=== PATIENT | female | born 2000 | race Caucasian/White ===

== ENCOUNTER 2018-06-11 11:21 | Emergency (ER) | payer OTHER ==
[~2018-06-11] VITALS: Ht 162.6 cm; Wt 82.6 kg
[~2018-06-11 11:21] MED LIST: DICY10CA40 PO; IBUP-1542 PO; ONDA4TAB8 PO
[2018-06-11 11:30] VITALS: Ht 162.6 cm; Wt 82.6 kg
[2018-06-11] MEDS ORDERED: KETOROLAC 30 MG INJ IM STA (12:07)
[2018-06-11] MEDS ORDERED: IBUP-1542 PO (13:01)
[2018-06-11] MEDS ORDERED: BUTA1CAP38 PO (13:01)
--- NOTE | 2018-06-11 13:04 | ERD ---
ER Documentation Chief Complaint Chief Complaint headache /dizizness since yesterday HPI 18-year-old female presents with a headache since yesterday. She has a history of frequent headaches. They usually frontal and bitemporal. She denies any history of trauma. Denies any fevers, visual changes, nausea vomiting, deficits. She denies urinary complaints. She denies chest pain, shortness of breath. Patient is currently on her menses. Patient admits to history of anxiety. Patient takes ibuprofen for headaches but has not taken any today. ROS All systems reviewed and are negative except as per history of present illness. Medications Home Meds Active Scripts Ibuprofen* (Motrin*) 600 Mg Tab, 600 MG PO Q6, #20 TAB Prov:KIARA KWOK MD 06/11/18 Iofmfyjiha-Psdcwkjaybqyu-Ywvcglpq* (Fioricet*) 50-300-40 Mg Capsule, 1 CAP PO Q4H PRN for HEADACHE, #15 CAP Prov:KIARA KWOK MD 06/11/18 Dicyclomine HCl (Dicyclomine HCl) 10 Mg Capsule, 10 MG PO QID for 3 Days, CAP Prov:SEBAS MUNIZ 09/18/15 Ondansetron Hcl* (Zofran*) 4 Mg Tablet, 4 MG PO Q6H for NAUSEA AND/OR VOMITING, #30 TAB Prov:SEBAS MUNIZ 09/18/15 Ibuprofen* (Motrin*) 600 Mg Tab, 600 MG PO Q6, #14 TAB Prov:KIARA KWOK MD 03/30/15 Allergies Allergies: Coded Allergies: No Known Allergy (Unverified , 06/11/18) PMhx/Soc Medical and Surgical Hx: pt denies Medical Hx, pt denies Surgical Hx History of Surgery: No Anesthesia Reaction: No Hx Neurological Disorder: No Hx Respiratory Disorders: No Hx Cardiac Disorders: No Hx Psychiatric Problems: No Hx Miscellaneous Medical Probl: No Hx Alcohol Use: No Hx Substance Use: No Hx Tobacco Use: No Smoking Status: Never smoker FmHx Family History: No diabetes, No coronary disease, No other Physical Exam Vitals Vital Signs Date Temp Pulse Resp B/P (MAP) Pulse Ox O2 O2 Flow FiO2 Time Delivery Rate 06/11/18 97.8 74 19 125/72 100 11:30 (89) Physical Exam Const: No acute distress Head: Atraumatic. Patient has reproducible headache with bitemporal palpation without pulsatile masses. Eyes: Normal Conjunctiva and eyes Debbie and extraocular movements intact. ENT: Normal External Ears, Nose and Mouth. TMs normal. Oropharynx normal. Neck: Full range of motion. No meningismus. Resp: Clear to auscultation bilaterally Cardio: Regular rate and rhythm, no murmurs Abd: Soft, non tender, non distended. Normal bowel sounds Skin: No petechiae or rashes Back: No midline or flank tenderness Ext: No cyanosis, or edema Neur: Awake and alert. Cranial nerves II through XII grossly intact. Normal gait. No cerebellar signs. Negative Romberg and no pronator drift. Psych: Normal Mood and Affect Results 24 hrs Laboratory Tests Test 06/11/18 12:25 Urine Color DILCIA Urine Clarity CLOUDY Urine pH 6.0 Urine Specific [place] 1.028 Urine Ketones TRACE mg/dL Urine Nitrite NEGATIVE mg/dL Urine Bilirubin NEGATIVE mg/dL Urine Urobilinogen NEGATIVE mg/dL Urine Leukocyte Esterase TRACE [place]/ul Urine Microscopic RBC > 182 /HPF Urine Microscopic WBC 21 /HPF Urine Mucus MODERATE /HPF Urine Hemoglobin 3+ mg/dL Urine Glucose NEGATIVE mg/dL Urine Total Protein 2+ mg/dl Urine Test NEGATIVE Current Medications Medications Dose Sig/Sandeep Start Time Status Last (Trade) Ordered Route PRN Stop Time Admin Dose Reason Admin Ketorolac 30 mg ONCE STAT 06/11/18 DC 06/11/18 Tromethamine IM 12:07 12:43 (Toradol) 06/11/18 12:08 Procedures/MDM HCG is negative. Urine shows hemoglobin and trace leukocytes although patient is on menses. Patient presents with signs and symptoms of likely tension headache. No signs of neurologic deficit, signs of meningitis, history of trauma, additional concerning signs or symptoms. No signs of central nervous lesion and doubt subarachnoid or additional emergent causes of headache. Will treat with Fioricet, continuation of ibuprofen, primary care follow-up and return precautions. She was administered Toradol 30 mg IM here in the ED. The patient was stable with no new complaints during the ER course. Clinically, there is no current evidence to suggest meningitis, sepsis, acute abdomen, pneumonia, stroke, acute coronary syndrome, pulmonary embolism, aortic dissection or any other emergent condition appearing to require further evaluation or hospitalization. Patient counseled regarding my diagnostic impression and care plan. Prior to discharge all questions answered. Pt agrees with treatment plan and understands strict return precautions. Pt is instructed to follow up with primary care provider within 24-48 hours. Precautionary instructions provided including instructions to return to the ER if not improving or for any worsening or changing symptoms or concerns. Departure Diagnosis: Primary Impression: Headache Headache type: unspecified Headache chronicity pattern: unspecified pattern Intractability: not intractable Qualified Codes: R51 - Headache Condition: Stable Patient Instructions: Self-Care for Headaches, Headache, Unspecified Referrals: NO PRIMARY,CARE PHYSICIAN (PCP) Additional Instructions: Suspect tension headache. Recheck for deficits, fevers, vomiting, visual changes, new worsening symptoms with primary care doctor. KIARA KWOK MD Jun 11, 2018 13:04
[2018-06-11 13:27] VITALS: BP 119/76; PULSE 71; RESP 16
== END 2018-06-11 13:10 | disposition home or self-care (01) ==
LOC: FTE 11:21
DX: R51 Headache (principal)
CPT/HCPCS: 81001; 84703; 96372; J1885; Z7502

== ENCOUNTER 2018-08-20 21:36 | Emergency (ER) | payer OTHER ==
[~2018-08-20] VITALS: Ht 165.1 cm; Wt 83.4 kg
[~2018-08-20 21:36] MED LIST changes: +BUTA1CAP38 PO
[2018-08-20 22:04] VITALS: Ht 165.1 cm; Wt 83.4 kg
[2018-08-21] MEDS ORDERED: LORAZEPAM 0.5 MG TAB PO ONE (00:30)
[2018-08-21] MEDS ORDERED: LORA-441 PO (00:55)
--- NOTE | 2018-08-21 01:20 | ERD ---
ER Documentation Chief Complaint Chief Complaint PT REPORTS SOB WHILE DRIVING HPI 18-year-old female with no reported past medical or surgical history, questionable history of anxiety presents with complaint of anxiety associated with shortness of breath and chest pressure. States symptoms began abruptly while she was driving. Reports increased stressors at home school and work. She otherwise denies recent illness, fevers, chills, chest pain, headache, numbness, dyspnea on exertion, nausea, vomiting, diarrhea, abdominal pain, urinary symptoms. Denies any history of depression, denies suicidal homicidal ideation, personal history of cardiopulmonary disease, family history of early cardiac . At time examination patient quite pleasant and in no acute distress. ROS All systems reviewed and are negative except as per history of present illness. Medications Home Meds Active Scripts Lorazepam* (Ativan*) 0.5 Mg Tablet, 0.5 MG PO Q8H PRN for ANXIETY, #10 TAB Prov:GREGORIA MAYER PA-C 08/21/18 Ibuprofen* (Motrin*) 600 Mg Tab, 600 MG PO Q6, #20 TAB Prov:KIARA KWOK MD 06/11/18 Bolxapyxwi-Awcjlhtxxyszf-Nrvojvpq* (Fioricet*) 50-300-40 Mg Capsule, 1 CAP PO Q4H PRN for HEADACHE, #15 CAP Prov:KIARA KWOK MD 06/11/18 Dicyclomine HCl (Dicyclomine HCl) 10 Mg Capsule, 10 MG PO QID for 3 Days, CAP Prov:CRISTYSEBAS KAY C 09/18/15 Ondansetron Hcl* (Zofran*) 4 Mg Tablet, 4 MG PO Q6H for NAUSEA AND/OR VOMITING, #30 TAB Prov:SEBAS MUNIZ 09/18/15 Ibuprofen* (Motrin*) 600 Mg Tab, 600 MG PO Q6, #14 TAB Prov:KIARA KWOK MD 03/30/15 Allergies Allergies: Coded Allergies: No Known Allergy (Unverified , 06/11/18) PMhx/Soc Medical and Surgical Hx: pt denies Medical Hx, pt denies Surgical Hx History of Surgery: No Anesthesia Reaction: No Hx Neurological Disorder: No Hx Respiratory Disorders: No Hx Cardiac Disorders: No Hx Psychiatric Problems: No Hx Miscellaneous Medical Probl: No Hx Alcohol Use: No Hx Substance Use: No Hx Tobacco Use: No Smoking Status: Never smoker FmHx Family History: No diabetes, No coronary disease, No other Physical Exam Vitals Vital Signs Date Temp Pulse Resp B/P (MAP) Pulse Ox O2 O2 Flow FiO2 Time Delivery Rate 08/20/18 99.1 91 24 167/86 100 22:04 (113) Physical Exam I have reviewed the triage vital signs. Const: Well nourished, well developed, appears stated age Eyes: PERRL, no conjunctival injection HENT: NCAT, Neck supple without meningismus CV: RRR, Warm, well-perfused extremities RESP: CTAB, Unlabored respiratory effort GI: soft, non-tender, non-distended, no masses MSK: No gross deformities appreciated Skin: Warm, dry. No rashes Neuro: grossly non focal Psych: Appropriate mood and affect. Results 24 hrs Laboratory Tests Test 08/21/18 00:06 POC Beta HCG, Qualitative NEGATIVE Current Medications Medications Dose Sig/Sandeep Start Time Status Last (Trade) Ordered Route PRN Stop Time Admin Dose Reason Admin Lorazepam 0.5 mg ONCE ONCE 08/21/18 DC 08/21/18 (Ativan) PO 00:30 00:32 08/21/18 00:31 Procedures/MDM 18-year-old female presents with symptoms likely secondary to anxiety attack. Low suspicion for acute cardiopulmonary process including dissection, ACS, or PE. Denies any acute ingestions and denies any other medical complaints at this time. Does not endorse any alcohol withdrawal symptoms. Engages with conversation. Mood and affect are congruent. Thoughts are linear and organized, and has no AH or HI. No acute need for psychiatric consultation and patient without SI or HI. Clinically no overt toxidrome, well appearing, low suspicion for ingestion given history and exam. ED course: EKG without acute findings per attending read, patient given 0.5 mg of Ativan with improvement in symptoms, will discharge with short course of Ativan as needed for anxiety, patient instructed to establish care and follow-up with primary care Cautious return precautions discussed w/ full understanding. Departure Diagnosis: Primary Impression: Anxiety Condition: Stable Patient Instructions: Your Body's Response to Anxiety, Anxiety Reaction Referrals: (Family) Additional Instructions: Call your primary care doctor TOMORROW for an appointment during the next 2-3 days.See the doctor sooner or return here if your condition worsens before your appointment time. GREGORIA MAYER PA-C Aug 21, 2018 01:20
[2018-08-21 01:34] VITALS: BP 133/80; PULSE 84; RESP 17
== END 2018-08-21 01:34 | disposition home or self-care (01) ==
LOC: FTE 21:36
DX: F41.9 Anxiety disorder, unspecified (principal)
CPT/HCPCS: 81025; 93005; Z7502; Z7610; 99283

== ENCOUNTER 2018-09-05 20:39 | Emergency (ER) | payer SELFPAY ==
[~2018-09-05] VITALS: Ht 160 cm; Wt 81.1 kg
[~2018-09-05 20:39] MED LIST changes: +LORA-441 PO
[2018-09-05 20:42] VITALS: BP 136/73; PULSE 96; RESP 16; Ht 160 cm; Wt 81.1 kg
== END 2018-09-06 02:21 | disposition left against medical advice (07) ==
LOC: FTE 20:39
DX: Z53.21 Procedure and treatment not carried out due to patient leaving prior to being seen by health care provider (principal)

== ENCOUNTER → 2018-10-07 | Emergency (ER) | payer OTHER ==
[~2018-10-07] VITALS: Ht 162.6 cm; Wt 81.1 kg
[~2018-10-07] MED LIST changes: +ABCC1C PO; +CEPH-443 PO; +DIPHENHYDRAMINE 25 MG CAP PO ONE; +FLUO20CA22 PO; +HYDR-843 PO; +PRED20TA PO; +predniSONE 20 MG TAB PO ONE
[2018-10-07 11:36] VITALS: BP 126/77; PULSE 78; RESP 18; Ht 162.6 cm; Wt 81.1 kg
--- NOTE | 2018-10-07 12:37 | ERD ---
ER Documentation Chief Complaint Chief Complaint left arm redness possible insect bite x 2 days HPI This is a 18-year-old woman complaining of left anterior upper arm redness and swelling x2 days status post spider bite 2 days ago. The redness has not been expanding as she did draw a [place] around the margins with a pen, but she has continued pruritus and pain to the arm. She is also worried about hyperthyroidism because she states she lost about 7 pounds unexpectedly recently and has been having intermittent palpitations, dizziness, shortness of breath which usually resolve spontaneously and are unprovoked. She denies fevers or chills, no loss of consciousness, no paresis or paresthesias, no chest pain or shortness of breath, denies abdominal pain, no dysuria, no headache or blurry vision, no slurred speech. ROS All systems reviewed and are negative except as per history of present illness. Medications Home Meds Active Scripts Hydroxyzine Hcl* (Hydroxyzine Hcl*) 25 Mg Tablet, 25 MG PO TID PRN for ITCHING, #15 TAB Prov:BETY MORROW MD 10/07/18 Cephalexin* (Keflex*) 500 Mg Capsule, 500 MG PO TID for 5 Days, CAP Prov:BETY MORROW MD 10/07/18 Prednisone* (Prednisone*) 20 Mg Tab, 40 MG PO DAILY for 3 Days, TAB Prov:BETY MORROW MD 10/07/18 Fluoxetine Hcl* (Fluoxetine Hcl*) 20 Mg Capsule, 20 MG PO DAILY, #30 CAP Prov:BRAVO SILVA MD 09/24/18 Lorazepam* (Ativan*) 0.5 Mg Tablet, 0.5 MG PO Q8H PRN for ANXIETY, #10 TAB Prov:BRAVO SILVA MD 09/24/18 Hqzfkyplegcfb-Xvasivmlxp-Yhozhmpb-Codeine* (Fioricet w/Codeine*) [id number] Cap, 1 CAP PO TID PRN for PAIN LEVEL 1-5 for 12 Days, CAP Prov:BRAVO SILVA MD 09/24/18 Lorazepam* (Ativan*) 0.5 Mg Tablet, 0.5 MG PO Q8H PRN for ANXIETY, #10 TAB Prov:GREGORIA MAYER PA-C 08/21/18 Ibuprofen* (Motrin*) 600 Mg Tab, 600 MG PO Q6, #20 TAB Prov:KIARA KWOK MD 06/11/18 Apsdhakwoi-Hophkntdatbkl-Gxzgngzy* (Fioricet*) 50-300-40 Mg Capsule, 1 CAP PO Q4H PRN for HEADACHE, #15 CAP Prov:KIARA KWOK MD 06/11/18 Dicyclomine HCl (Dicyclomine HCl) 10 Mg Capsule, 10 MG PO QID for 3 Days, CAP Prov:SEBAS MUNIZ 09/18/15 Ondansetron Hcl* (Zofran*) 4 Mg Tablet, 4 MG PO Q6H for NAUSEA AND/OR VOMITING, #30 TAB Prov:SEBAS MUNIZ 09/18/15 Ibuprofen* (Motrin*) 600 Mg Tab, 600 MG PO Q6, #14 TAB Prov:KIARA KWOK MD 03/30/15 Allergies Allergies: Coded Allergies: No Known Allergy (Unverified , 10/07/18) PMhx/Soc None History of Surgery: No Anesthesia Reaction: No Hx Neurological Disorder: No Hx Respiratory Disorders: No Hx Cardiac Disorders: No Hx Psychiatric Problems: No Hx Miscellaneous Medical Probl: No Hx Alcohol Use: No Hx Substance Use: No Hx Tobacco Use: No Smoking Status: Never smoker FmHx Family History: No diabetes Physical Exam Vitals Vital Signs Date Temp Pulse Resp B/P (MAP) Pulse Ox O2 O2 Flow FiO2 Time Delivery Rate 10/07/18 98.9 78 18 126/77 98 11:36 (93) Physical Exam GENERAL: Well-developed, well-nourished, well-hydrated, in no apparent distress, looks nontoxic in appearance CARDIAC: Regular rate and rhythm, no murmurs rubs or gallops LUNGS: Clear bilaterally no wheezing crackles or stridor ABDOMEN: Soft nontender, no guarding, no rigidity, no rebound, no psoas sign no obturator sign. Normoactive bowel sounds SKIN: Warm and dry to touch, 6 cm circular erythema to the left anterior arm just proximal to the anterior cubital fossa, no skin induration, no pustules or vesicles, no ulcers, no target lesions EXTREMITIES: No clubbing cyanosis or edema, calves are bilaterally symmetrical, no Homans sign, no popliteal cord sign. Distal pulses equal and bilateral Results 24 hrs Laboratory Tests Test 10/07/18 12:03 Thyroid Stimulating Hormone (TSH) Pending Free Thyroxine 0.93 ng/dl Free Triiodothyronine (T3) pg/mL 3.89 pg/ml Current Medications Medications Dose Sig/Sandeep Start Time Status Last (Trade) Ordered Route PRN Stop Time Admin Dose Reason Admin 25 mg ONCE ONCE 10/07/18 DC 10/07/18 Diphenhydrami PO 12:00 10/07/18 11:53 ne HCl 12:01 (Benadryl) Prednisone 20 mg ONCE ONCE 10/07/18 DC 10/07/18 (Prednisone) PO 12:00 10/07/18 11:53 12:01 Procedures/MDM TSH level is in free T3 free T4 were normal. I suspect localized allergic reaction from insect sting or spider bite, she will be managed as an outpatient with oral antibiotics, hydroxyzine, and prednisone. Differential diagnoses considered, included but not limited to acute coronary syndrome, pulmonary embolism, aortic dissection, abdominal aortic aneurysm, sepsis, stroke, meningitis, encephalitis, pneumonia, appendicitis, cholecystitis, bowel obstruction, pyelonephritis, nephrolithiasis, cystitis, as well as metabolic, hematologic, and electrolyte abnormalities. As well as abscess, cellulitis, fractures, and dislocations. Patient feels much better at this time, and vital signs are normal, symptoms have improved. I did give strict instructions to return to the ED if symptoms continue or worsen, patient will otherwise follow-up with primary care physician. Patient understood instructions and agreed to plan. Disclaimer: Inadvertent spelling and grammatical errors are likely due to EHR/dictation software use and do not reflect on the overall quality of patient care. Also, please note that the electronic time recorded on this note does not necessarily reflect the actual time of the patient encounter. Departure Diagnosis: Primary Impression: Spider bite Encounter type: initial encounter Injury intent: accidental or unintentional Qualified Codes: T63.301A - Toxic effect of unspecified spider venom, accidental (unintentional), initial encounter Condition: Good Patient Instructions: Insect Bite BETY MORROW MD Oct 07, 2018 12:36
== END | disposition home or self-care (01) ==
LOC: FTE 11:33
DX: T63.301A Toxic effect of unspecified spider venom, accidental (unintentional), initial encounter (principal)
CPT/HCPCS: 84439; 84443; 84481; J7512; Z7502; Z7610; 99283